=== PATIENT | female | born 1985 | race Caucasian/White ===

== ENCOUNTER 2022-07-29 11:13 | Emergency (ER) | payer MEDICAID, SELFPAY ==
[2022-07-29 11:20] VITALS: PULSE 63; RESP 16; O2SAT 97
[2022-07-29 11:38] VITALS: BP 135/100; TEMP 35.7
[2022-07-29] MEDS: sodium chloride 0.9% 1,000 ML 999 ML IV (11:46)
[2022-07-29] MEDS: ondansetron 2 mg/ML SDV 2 mL 4 MG IVP (11:47)
[2022-07-29 11:50] LABS: Basophils # 0.1 10^3/uL (0.0-0.1); Basophils % 0.5 %; Hemoglobin 14.5 g/dL (11.5-15.3); Lymphocytes # 2.1 10^3/uL (0.8-4.8); Lymphocytes % 17.3 %; Mean Corpuscular HGB Conc 33.7 g/dL (30.0-36.0); Mean Corpuscular Hemoglobin 32.1 pg (28.0-34.0); Mean Corpuscular Volume 95.1 fl (81-99); Mean Platelet Volume 9.8 fL (7.4-10.4); Monocytes # 0.5 10^3/uL (0.2-0.9); Monocytes % 4.2 %; Neutrophils # 9.19 10^3/uL (1.8-7.7); Neutrophils % 77.5 %; Nucleated Red Blood Cells % 0 %; Platelet Count 306 10^3/cmm (130-400); Red Blood Count 4.52 10^6/uL (4.1-5.3); Red Cell Distribution Width 12.9 % (12.1-15.1); White Blood Count 11.9 10^3/uL (4.0-10.0)
[2022-07-29 12:10] LABS: HCG, Serum Qual Negative (Negative)
--- NOTE | 2022-07-29 12:17 | W.ED.NAVMDI ---
HPI - Nausea/Vomiting/Diarrhea General: Chief complaint: Nausea/Vomiting/Diarrhea Stated complaint: n/v/5hours Time Seen by Provider: 07/29/22 11:21 History of Present Illness: This patient is a 37 year old presenting with vomiting and epigastric pain since last night. She has noted some blood in the emesis - brown, coffee grounds. She started with the epigastric pain and vomiting around 5 am and has had no relief. She hasn't been able to take PO. She did drink a lot of alcohol last night - which is not normal for her - and also smokes marijuana on a daily basis. She has had a - no other abdominal surgeries. She takes medication for HTN. No other medical history. She denies ever having anything like this before. Physical Exam Const: GENERAL APPEARANCE: in distress and ill appearing ORIENTATION/CONSCIOUSNESS: Yes awake, Yes oriented to person, Yes oriented to place and Yes oriented to time HENMT: HEAD & SCALP: normal to inspection FACE & SINUS: normal facial exam Eye: GENERAL EYE: appearance normal, both eyes and all related structures Neck/C-Spine: COMMON NORMALS: supple, no meningeal signs and no JVD Chest: COMMONS NORMALS: normal inspection of the chest Resp: COMMON NORMALS: normal respiratory effort, No use of accessory muscles and clear to auscultation bilaterally AUSCULTATION: clear to auscultation bilaterally Cardio: COMMON NORMALS: no JVD, regular rate, regular rhythm and No murmurs present (Cardio) RATE: regular rate RHYTHM: regular rhythm GI: COMMON NORMALS: Soft to palpation INSPECTION: Yes normal to inspection PALPATION: Yes Soft to palpation, Yes Tenderness to palpation present (GI) (epigastric only) and No Rebound tenderness present Back/Pelvis: COMMON NORMALS: thoracic and lumbar spine normal to inspection Extremity: COMMON NORMALS: normal to inspection Neuro: COMMON NORMALS: moves all extremities, no focal motor deficits and no sensory deficits noted SENSORIUM/ORIENTATION: Yes oriented to person, Yes oriented to place and Yes oriented to time MENINGEAL SIGNS: Yes no meningeal signs Psych: COMMON NORMALS: mental status grossly normal, cooperative and normal affect Skin: COMMON NORMALS: no rashes or lesions noted and turgor normal GENERAL SKIN EXAM: no rashes or lesions noted and turgor normal Course Vital Signs: Vital signs: Vital Signs Temperature 96.2 F L 07/29/22 11:38 Pulse Rate 63 07/29/22 11:20 Respiratory Rate 16 07/29/22 11:20 Blood Pressure 135/100 07/29/22 11:38 Pulse Oximetry 97 07/29/22 11:20 Oxygen Delivery Me thod 07/29/22 11:20 MDM - Nausea/Vomiting/Diarrhea Medical Decision Making Patient with profound vomiting this morning. She did binge drink last night - but hasn't had anything like this before and has never seen blood in the emesis before. No history of ulcers. She also smokes marijuana on a daily basis and this could be hyperemesis secondary to that. Also with GI bleeding and epigastric pain, esophagitis, gastritic, ulcers, pancreatitis are all in the differential. UA, UPT - need to rule out . No RUQ or RLQ tenderness so unlikely appendix or gallbladder. Zofran, IVF, pepcid started. Patient slept and felt better on awakening. She was able to tolerate PO and her epigastric pain is better. D/C'd with protonix and zofran. Lab Data 07/29/22 11:42 07/29/22 11:42 Laboratory Results WBC 11.9 10^3/uL (4.0-10.0) H 07/29/22 11:42 RBC 4.52 10^6/uL (4.1-5.3) 07/29/22 11:42 Hgb 14.5 g/dL (11.5-15.3) 07/29/22 11:42 Hct 43.0 % (37.0-47.0) 07/29/22 11:42 MCV 95.1 fl (81-99) 07/29/22 11:42 MCH 32.1 pg (28.0-34.0) 07/29/22 11:42 MCHC 33.7 g/dL (30.0-36.0) 07/29/22 11:42 RDW 12.9 % (12.1-15.1) 07/29/22 11:42 Plt Count 306 10^3/cmm (130-400) 07/29/22 11:42 MPV 9.8 fL (7.4-10.4) 07/29/22 11:42 Neut % (Auto) 77.5 % 07/29/22 11:42 Lymph % (Auto) 17.3 % 07/29/22 11:42 [place] % (Auto) 4.2 % 07/29/22 11:42 Eos % (Auto) 0.0 % 07/29/22 11:42 Baso % (Auto) 0.5 % 07/29/22 11:42 Neut # (Auto) 9.19 10^3/uL (1.8-7.7) H 07/29/22 11:42 Lymph # (Auto) 2.1 10^3/uL (0.8-4.8) 07/29/22 11:42 [place] # (Auto) 0.5 10^3/uL (0.2-0.9) 07/29/22 11:42 Eos # (Auto) 0.0 10^3/uL (0.0-0.8) 07/29/22 11:42 Baso # (Auto) 0.1 10^3/uL (0.0-0.1) 07/29/22 11:42 Nucleated RBC % (auto) 0 % 07/29/22 11:42 Nucleated RBCs # 0.0 /100WBC 07/29/22 11:42 Sodium 143 mmol/L (136-145) 07/29/22 11:42 Potassium 3.6 mmol/L (3.5-5.1) 07/29/22 11:42 Chloride 102 mmol/L (98-107) 07/29/22 11:42 Carbon Dioxide 23 mmol/L (22-29) 07/29/22 11:42 Anion Gap 21.6 (5-19) H 07/29/22 11:42 BUN 7 mg/dL (6-20) 07/29/22 11:42 Creatinine 0.9 mg/dL (0.5-0.9) 07/29/22 11:42 GFR Calculation 71.3 mL/min (90-130) L 07/29/22 11:42 Glucose 113 mg/dL (65-115) 07/29/22 11:42 Calculated Osmolality 295 mOsm/kg (285-295) 07/29/22 11:42 Calcium 10.2 mg/dL (8.5-10.5) 07/29/22 11:42 Total Bilirubin 0.6 mg/dL (0.15-1.2) 07/29/22 11:42 AST 28 U/L (0-32) 07/29/22 11:42 ALT 20 U/L (0-33) 07/29/22 11:42 Alkaline Phosphatase 68 U/L (35-105) 07/29/22 11:42 Total Protein 8.3 g/dL (6.6-8.7) 07/29/22 11:42 Albumin 4.9 g/dL (3.5-5.2) 07/29/22 11:42 Globulin 3.4 g/dL (1.3-4.6) 07/29/22 11:42 Lipase 13 U/L (13-60) 07/29/22 11:42 HCG, Qual Negative (Negative) 07/29/22 11:42 Urine Color Dark yellow (Yellow) 07/29/22 13:43 Urine Appearance Clear (CLEAR) 07/29/22 13:43 Urine pH 8 (5-7) H 07/29/22 13:43 Ur Specific [place] 1.010 (1.005-1.030) 07/29/22 13:43 Urine Protein Trace (Negative) 07/29/22 13:43 Urine Glucose (UA) Norm (Normal) 07/29/22 13:43 Urine Ketones 3+ (Negative) H 07/29/22 13:43 Urine Blood 3+ (Negative) H 07/29/22 13:43 Urine Nitrate Negative (Negative) 07/29/22 13:43 Urine Bilirubin Neg (Negative) 07/29/22 13:43 Prot Sulfosalicylic Acd Positive (Negative) 07/29/22 13:43 Urine Urobilinogen Norm mg/dL (Negative) 07/29/22 13:43 Ur Leukocyte Esterase Trace (Negative) H 07/29/22 13:43 Urine RBC 5-10 /hpf (0-2) H 07/29/22 13:43 Urine WBC 0-4 /hpf (0-5) H 07/29/22 13:43 Ur Squamous Epith Cells 10-15 /hpf (0-5) H 07/29/22 13:43 Amorphous Sediment Not Reportable 07/29/22 13:43 Urine Bacteria 2+ /hpf (NONE) H 07/29/22 13:43 Urine Mucus Trace /hpf 07/29/22 13:43 Discharge Plan Discharge Patient Disposition: Home Clinical Impression: Vomiting, Gastritis, Hematemesis, Acute epigastric pain, Marijuana use Condition: Stable Prescriptions: New Protonix 40 mg tablet,delayed release (DR/EC) 40 mg PO DAILY 28 Days Qty: 30 0RF ondansetron 4 mg tablet,disintegrating 4 mg PO DAILY 3 Days Qty: 10 0RF Discharge Orders: Discharge ED (Routine); Ordered 07/29/22 Ordered By: Carlene Callahan Discharge Diet: Advance as tolerated Discharge Activity: Increase activity as tolerated Patient Instructions: Abdominal Pain (ED), Opioid Safety, Pain Management Activity Restrictions/Additional Instructions: Avoid acid, spicy foods, alcohol until feeling better. Take the protonix daily for the next few weeks to help your stomach and esophagus recover. Use the zofran (ondansetron) if needed for nausea or vomiting. Be aware that daily marijuana use can cause recurrent episodes of vomiting in some people - so if you have further episodes like this, that could be the cause. See your doctor or return to the ED if you feel worse or are not able to keep down fluids. Coding Level of Care Code ED Artificial Intelligence Specialist for S[facility] Fwgodwin Exam Comprehensive
[2022-07-29] MEDS: famotidine 20 mg/2 mL INJ 40 MG IVP (12:20)
[2022-07-29 12:27] LABS: Alanine Aminotransferase 20 U/L (0-33); Albumin Level 4.9 g/dL (3.5-5.2); Alkaline Phosphatase 68 U/L (35-105); Anion Gap 21.6 (5-19); Aspartate Amino Transferase 28 U/L (0-32); Blood Urea Nitrogen 7 mg/dL (6-20); Calcium 10.2 mg/dL (8.5-10.5); Carbon Dioxide 23 mmol/L (22-29); Chloride 102 mmol/L (98-107); Globulin 3.4 g/dL (1.3-4.6); Glomerular Filtration Rate 71.3 mL/min (90-130); Glucose 113 mg/dL (65-115); Lipase 13 U/L (13-60); Osmolality Calculated 295 mOsm/kg (285-295); Potassium 3.6 mmol/L (3.5-5.1); Sodium 143 mmol/L (136-145); Total Bilirubin 0.6 mg/dL (0.15-1.2); Total Protein 8.3 g/dL (6.6-8.7)
--- NOTE | 2022-07-29 14:36 | PC.NURSE ---
pt asleep, respirations even and unlabored. Medication held at this time, physician okayed
[2022-07-29 14:48] LABS: Urine Appearance Clear (CLEAR); Urine Color Dark Yellow (Yellow)
[2022-07-29 14:50] LABS: pH Urine 8 (5-7)
[2022-07-29 14:51] LABS: Add Urine Microscopic? YES; Bilirubin Urine Neg (Negative); Blood Urine 3+ (Negative); Glucose Urine UA Norm (Normal); Ketones Urine 3+ (Negative); Leukocyte Esterase Urine Trace (Negative); Nitrate Urine Negative (Negative); Protein Urine Trace (Negative); Sulfosalicylic Acid Urine Positive (Negative); Urobilinogen Urine Norm (Negative)
[2022-07-29 14:52] LABS: Add Urine Culture? No; Bacteria Urine 2+ /hpf; Mucus Urine TRACE /hpf; WBC Urine 0-4 /hpf (0-5)
[2022-07-29 16:39] VITALS: BP 126/92; PULSE 67; RESP 16; O2SAT 96
== END 2022-07-29 16:40 | disposition home or self-care (01) ==
PROVIDERS: Physician Assistant; Emergency Provider Emergency Medicine
DX: K29.70 Gastritis, unspecified, without bleeding (principal); F12.90 Cannabis use, unspecified, uncomplicated
CPT/HCPCS: 80053; 81001; 83690; 84703; 85025; 96361; 96374; 96375; 99284; J2405; J3490; J7030

== ENCOUNTER 2023-01-22 12:13 | Outpatient (CLI) | payer MEDICAID, SELFPAY ==
--- NOTE | 2023-01-22 12:36 | XR_ITS ---
WS: [id number] EXAMINATION: XR thoracic spine 3V* [id number] REASON FOR EXAM: THORACIC BACK PAIN COMPARISON: None available. ORDER DATE: 01/22/2023 12:43 PM FINDINGS: Generalized degenerative spinal changes are seen including moderate degenerative endplate changes and marginal osteophytes. There is minimal narrowing of the intervertebral disc spaces. There is no evid ence of acute compression deformities or spondylolisthesis. XR/XR thoracic spine 3V* [id number] IMPRESSION: MODERATE DEGENERATIVE SPINE CHANGE AND SPONDYLOSIS. INCIDENTALLY SEVERAL CALCIFIED GALLSTONES ARE NOTED
== END 2023-01-22 12:14 | disposition home or self-care (01) ==
PROVIDERS: PCP Nurse Practitioner Family; Visit Provider Nurse Practitioner Family
DX: M47.814 Spondylosis without myelopathy or radiculopathy, thoracic region (principal)
CPT/HCPCS: 72072

== ENCOUNTER → 2023-02-07 09:45 | Outpatient (BNVA) | payer MEDICAID, SELFPAY | PROVIDERS: PCP Nurse Practitioner Family; Referring Provider Nurse Practitioner Family; Visit Provider Physician Assistant | DX: M54.6 Pain in thoracic spine (principal) | CPT/HCPCS: 72070 ==

== ENCOUNTER → 2023-12-25 15:26 | Outpatient (BNVA) | payer MEDICAID, SELFPAY | PROVIDERS: PCP Nurse Practitioner Family; Referring Provider Nurse Practitioner Family; Visit Provider Nurse Practitioner | DX: M25.532 Pain in left wrist (principal); M67.432 Ganglion, left wrist | CPT/HCPCS: 73110 ==